=== PATIENT | female | born 1980 | race Caucasian/White ===

== ENCOUNTER 2023-03-11 13:25 | Emergency (ER) | payer OTHER ==
[~2023-03-11] VITALS: Ht 167.6 cm; Wt 59.0 kg
[2023-03-11 14:43] LABS: CALCIUM 9.2 mg/dL (8.5-10.1); CREATININE 0.7 mg/dL (0.6-1.3); POTASSIUM 4.2 mmol/L (3.5-5.1)
[2023-03-11 14:56] LABS: THYROID STIMULATING HORMONE 4.323 mIU/mL (0.358-3.740)
[2023-03-11] MEDS ORDERED: ALBUTEROL SULFATE 1.25 MG/3 ML NEBU NEB ONE (15:15)
[2023-03-11 15:25] VITALS: O2SAT 98
[2023-03-11 15:51] VITALS: BP 143/90; TEMP 98.4; O2SAT 100
== END 2023-03-11 15:51 | disposition home or self-care (01) ==
LOC: ER 13:25
DX: R00.2 Palpitations (principal)
CPT/HCPCS: 36415; 83735; 84443; A4606; A4663

== ENCOUNTER 2023-03-14 11:29 | Emergency (ER) | payer OTHER ==
[~2023-03-14] VITALS: Ht 167.6 cm; Wt 59.0 kg
[2023-03-14 11:32] VITALS: O2SAT 100
[2023-03-14] MEDS ORDERED: ALBU2SYR3 PO (13:10)
[2023-03-14] MEDS ORDERED: PRED50TA PO (13:10)
[2023-03-14] MEDS ORDERED: AZIT500T PO (13:10)
== END 2023-03-14 14:26 | disposition home or self-care (01) ==
LOC: ER 11:29
DX: J18.9 Pneumonia, unspecified organism (principal); Z79.899 Other long term (current) drug therapy
CPT/HCPCS: A4606; A4663

== ENCOUNTER 2024-03-24 11:27 | Emergency (ER) | payer OTHER ==
[~2024-03-24] VITALS: Ht 167.6 cm; Wt 61.7 kg
[~2024-03-24 11:27] MED LIST: ALBU2SYR3 PO; AZIT500T PO; PRED50TA PO
[2024-03-24] MEDS ORDERED: IBUP-1955 PO (12:30)
[2024-03-24 12:51] VITALS: BP 137/73; TEMP 98; O2SAT 100
== END 2024-03-24 12:52 | disposition home or self-care (01) ==
LOC: ER 11:27
DX: J06.9 Acute upper respiratory infection, unspecified (principal); J02.9 Acute pharyngitis, unspecified; Z79.52 Long term (current) use of systemic steroids
CPT/HCPCS: A4606; A4663

== ENCOUNTER 2025-03-11 13:54 | Emergency (ER) | payer OTHER ==
[~2025-03-11] VITALS: Ht 167.6 cm; Wt 64.0 kg
[2025-03-11 13:54] VITALS: BP 114/65; O2SAT 99
[~2025-03-11 13:54] MED LIST changes: +IBUP-1955 PO
[2025-03-11] MEDS ORDERED: CARB15DR63 RIGHT EAR (14:14)
== END 2025-03-11 14:23 | disposition home or self-care (01) ==
LOC: ER 13:54
DX: H61.21 Impacted cerumen, right ear (principal); Z79.52 Long term (current) use of systemic steroids
CPT/HCPCS: A4606; A4663